=== PATIENT | female | born 1985 | race Caucasian/White ===

== ENCOUNTER 2017-07-18 19:02 | Emergency (ER) | payer MEDICAID, OTHER ==
[2017-07-18] MEDS ORDERED: Morphine Sulfate 4 mg/mL 1mL Syr IVP ONE (20:12)
[2017-07-18] MEDS ORDERED: ceFAZolin 1 GM in Sodium Chloride 0.9% 50 ML IV ONE (20:13)
[2017-07-18] MEDS ORDERED: Morphine Sulfate 2 mg/mL 1mL Syr ONE (20:23)
[2017-07-18] MEDS ORDERED: Sodium Chloride 0.9% 1,000 ML IV ONE (21:34)
--- NOTE | 2017-07-18 21:40 | ED Physician Chart ---
ED Chief Complaint/HPI - Patient Information Date Seen:: 07/18/17 Time Seen:: 18:00 Chief Complaint:: LT SIDED TOOTHACHE SINCE THIS AM History of Present Illness:: THIS 32 YEAR OLD FEMALE HAD GRADUAL ONSET THIS AM OF TOOTH PAIN IN THE EXTREME LEFT SIDE OF HER MOUTH. SHE HAS A DIFFICULT TIME LOCALIZING THE PAIN TO A SINGLE TOOTH. HER PAIN AT THIS TIME IS A 10/10 SEVERITY WITH NO RELIEVING OF EXACERBATING FACTORS. THE PATIENT DENIES ANY DENTAL TRAUMA, FEVER, CHILLS OR SWEATS. THE PATIENT DENIES ANY PRIOR SIMILAR EPISODES. Allergies:: Allergies Allergy/AdvReac Type Severity Reaction Status Date / Time ibuprofen AdvReac Verified 07/18/17 19:20 Vitals:: Vital Signs - 8 hr 07/18/17 19:20 Temp 98.6 F HR 80 RR 14 BP 129/75 O2 Sat % 98 ED Review of Systems - Review of Systems General/Constitutional: No fever, No chills, No weakness, No diaphoresis Skin: No skin lesions, No rash, No bruising Head: No headache, No light-headedness Eyes: No loss of vision, No pain, No diplopia Cardio Vascular: No chest pain, No palpitations, No edema Pulmonary: No SOB, No cough, No sputum, No wheezing GI: No nausea, No vomiting, No diarrhea, No pain G/U: No dysuria, No frequency, No hematuria Musculoskeletal: Bone or joint pain, No back pain, No muscle pain Endocrine: No polyuria, Polydipsia Psychiatric: No prior psych history, No depression, No anxiety Neurological: No syncope, No weakness, No paresthesia, No headache, No seizure, No dizziness, No confusion, No vertigo ED Past Medical History - Past Medical History Past Medical History: No significant medical hx Family History: Diabetes Melitus (grandmother) Social History: Non Smoker, No Alcohol, No Drug Use Surgical History: Cholecystectomy, Psychiatricy History: None Family Medical History - Family Member Grandmother Hx Family Diabetes: Yes ED Physical Exam - Physical Examination General/Constitutional: Well-developed, well-nourished, Alert, Non-toxic appearing, Ambulatory Head: Atraumatic Other Head comments:: NO VISIBLE OF PALPABLE EVIDENCE OF TRAUMA. Eyes: Lids, conjuctiva normal, PERRL, EOMI Skin: No rash, No ecchymosis, No lymphadenopathy ENMT: External ears, nose nl, Nasal exam nl, Oropharynx nl, Tonsils nl Other ENMT comments:: TENDERNESS AND SWELLING AT THE GINGIVA OF TOOTH #17. Neck: Nontender, No JVD, No nuchal rigidity, No mass Respiratory: Nl effort/Exclusion, Clear to Auscultation, No Wheeze/Rhonchi/Rales Cardio Vascular: RRR, No murmur, gallop, rubs, NL S1 S2 Other Cardio Vascular comments:: Good pulses in all four extremities. GI: No tenderness/rebounding/guarding, No organomegaly, No hernia, Nondistended , No mass/bruits, No McBurney tenderness Other GI comments:: Rectal examination deferred at my discretion. : No CVA tenderness Extremities: No tenderness or effusion, Full ROM, normal strength in all extremities, No edema Neuro/Psych: Alert/oriented, Normal sensory exam, Normal motor strength, Judgement/insight normal, Mood normal, Normal gait, No focal deficits ED Assessment - Assessment General Assessment: THIS 32 YEAR OLD FEMALE WAS GIVEN IV MORPHINE FOR SEVERE TOOTH ACHE. SHORTLY AFTER INJECTION STARED TO COMPLAIN THAT HER THROAT WAS CLOSING OFF AND THAT SHE WAS EXPERIENCING ITCHING. 50 MG OF BENADRYL WAS ORDERED IV AND ADMINISTERED. ON EXAMINATION HER LUNGS WERE CLEAR AND THERE WAS NO WHEEZING OR STRIDER. SHORTLY AFTER THE BENADRY WAS ADMINISTERED, THE PT DEVELOPED SEVERE EPIGASTRIC PAIN. AN EKG WAS OBTAINEED AND WAS NORMAL, WITH NO ISCHEMIC FINDINGS. ON EXAM THE EPIGASTRIC AREA WAS NEG FOR TENDERNESS. PT'S SYMPTOMS HAD RESOLVED AND DENTAL PAIN WAS BETTER. PT WAS DISCHARGED WITH DX OF DENTAL INFECTION. ED Septic Shock - . Is Septic Shock (SBP<90, OR Lactate>4 mmol\L) present?: No - <6hrs of presentation: Vital Signs: Vital Signs - 8 hr 07/18/17 19:20 Temp 98.6 F HR 80 RR 14 BP 129/75 O2 Sat % 98 ED Reassessment (Disposition) - Reassessment Reassessment Condition:: Improved - Diagnosis Diagnosis:: DENTAL ABSCESS TOOTH NUMBER 17 ED Discharge Plan - Patient Disposition Admit/Discharge/Transfer: PT DISCHARGED HOME Instructions: Dental Pain
== END 2017-07-18 22:20 | disposition home or self-care (01) ==
LOC: ER 19:02
DX: K04.7 Periapical abscess without sinus (principal); Z88.6 Allergy status to analgesic agent
CPT/HCPCS: 99284; 96365; 96375; 93005; J2270; J2405; J0690; J1200; J7030; Z7502